=== PATIENT | male | born 1985 | race Caucasian/White ===

== ENCOUNTER 2017-06-04 23:07 | Emergency (ER) | payer BC, OTHER ==
[~2017-06-04] VITALS: Ht 175.3 cm; Wt 74.9 kg
[2017-06-04 23:23] VITALS: TEMP 36.9; Ht 175.3 cm; Wt 74.9 kg
[2017-06-05] MEDS ORDERED: LIDOCAINE/EPINEPHRINE 1% 20 ML VIAL INFIL ONE
--- NOTE | 2017-06-05 00:16 | EMERGENCY ROOM VISIT NOTE ---
ED Visit Note First contact with patient: 23:29 CHIEF COMPLAINT: Lip laceration HISTORY OF PRESENT ILLNESS: This 31-year-old male patient presents to the emergency department, ambulatory, with his , who is a physician, complaining of a left upper lip laceration. The patient was at the [employer], when he got excited and jumped upward. He states when he came down, his foot got stuck behind a bleacher, and he fell forward onto another bleacher. This split his left upper lip. The injury occurred approximately 1-1/2 hours ago. The patient states the pain is worse with pressure, however states it is mild at its worst. He states that the day, he had approximately 10 drinks. The patient denies any numbness or tingling, loss of consciousness, head injury , neck pain, back pain, headache, or other concerning symptoms. REVIEW OF SYSTEMS: A 10 system review of systems was performed with positives and pertinent negatives listed in the history of present illness. All other systems were reviewed and are negative. ALLERGIES: Triple antibiotic ointment MEDICATIONS: None PMH: None SOCIAL HISTORY: The patient is from [place]. He states he drank approximately 10 drinks today. He admits to chewing tobacco daily and admits to daily marijuana use. PHYSICAL EXAM: VITALS: Vitals are noted on the nurse's note and reviewed by myself. Vital signs stable. GENERAL: This is a 31-year-old male, in no acute distress, nondiaphoretic, well- developed well-nourished. SKIN: There is a laceration through the vermilion border and tired upper lip on the left side. There is swelling noted to the lip. There is mild active bleeding. There are no dental fractures. The skin was without rashes, erythema, edema, or bruising. There is no tenting of the skin. Capillary reflex less than 2 seconds. HEAD: Normocephalic atraumatic. EARS: External auditory canals clear, tympanic membranes pearly vanegas without erythema or effusion bilaterally. EYES: Pupils equal round and reactive to light and accommodation. Conjunctivae without injection, sclerae without icterus. Extraocular movements intact. NOSE: Patent, turbinates without inflammation or discharge. No sinus tenderness. MOUTH: Mucous membranes moist. Tonsils are not enlarged. Pharynx without erythema or exudate. Uvula midline. Airway patent. Tongue does not deviate. NECK: Supple without nuchal rigidity. No lymphadenopathy. No thyromegaly. Cervical spine is nontender. No JVD. EMERGENCY DEPARTMENT COURSE: The patient was seen and evaluated as above. His immediately asked for the plastic surgeon to come in to stitch his lip if possible. I did contact Dr. Saez cost control analyst, who states she would come in to perform the procedure. Please see her dictation for further management and care. DIFFERENTIAL DIAGNOSIS: Laceration, contusion, dental fracture, intracranial hemorrhage, closed head injury, concussion, and others DIAGNOSIS: Left upper lip laceration Allergies Uncoded Allergies: TRIPLE ANTIBIOTIC (Allergy, Intermediate, HIVES, 06/04/17) Vital Signs Date Time Temp Pulse Resp B/P (MAP) Pulse Ox O2 Delivery O2 Flow Rate FiO2 06/05/17 02:14 86 18 147/91 96 06/04/17 23:23 36.9 93 18 148/88 99 Room Air Medications Administered Medications (Trade) Dose Ordered Sig/Nolvia Route Start Time Stop Time Status Last Admin Dose Admin Chlorhexidine Gluconate (Peridex Oral Soln) 480 ml ONE STAT MT 06/05/17 01:52 06/05/17 01:55 DC 06/05/17 02:10 1 ML Departure Information Impression Primary Impression: Lip laceration Dispostion Home / Self-Care Condition GOOD Referrals No Doctor, Assigned (PCP) Patient Instructions My [facility] Additional Instructions Intermittently apply ice for swelling. Apply Vaseline to the incision. Rinse mouth with Peridex (15 ml) twice daily for 7 days. Suture removal in 7 days. Watch for any signs of developing infection. Ibuprofen 800 mg and/or Tylenol 1000 mg every 8 hours. You may also alternate these medications for more effective pain relief: Ibuprofen --4 HRS--> Tylenol --4 HRS--> ibuprofen --4 HRS--> Tylenol .... Follow-up directions per Dr. Saez. Recommend follow-up with an oral surgeon to recheck the laceration of the upper gum. Use Scar Away and start performing scar massage 3 weeks after suture removal. After 3 weeks, also use a high SPF factor sunblock over the next year to help minimize darkening of the scar. Problem Qualifiers Primary Impression: Lip laceration Encounter type: initial encounter Qualified Codes: S01.511A - Laceration without foreign body of lip, initial encounter
[2017-06-05] MEDS ORDERED: PRDXLUD MT (01:51)
[2017-06-05] MEDS ORDERED: CHLORHEXIDINE GLUCONATE 0.12% 480 ML MT STA (01:52)
[2017-06-05 02:14] VITALS: BP 147/91; PULSE 86; O2SAT 96
--- NOTE | 2017-06-05 02:39 | CONSULTATION REPORT ---
DATE OF CONSULTATION: 06/05/2017 REASON FOR CONSULTATION: Lip laceration. HISTORY OF PRESENT ILLNESS: The patient is a 31-year-old male who presented to the Emergency Department with his (who is a physician) after he sustained a lip laceration, which resulted when he got excited at the [employer] game and jumped, tripping on a bleacher and landing on another bleacher, which caused the laceration. The injury happened about 3 hours prior to my evaluation. He was complaining of some pain in his teeth and pain in the lips. Otherwise, he has no complaints. He acknowledges drinking approximately 10 drinks today. PAST MEDICAL HISTORY: None. He states he does not go to the doctor. PAST SURGICAL HISTORY: None other than laceration repair on his arm about 10 years ago. MEDICATIONS: None. ALLERGIES: TRIPLE ANTIBIOTIC OINTMENT. SOCIAL HISTORY: He is from [place] and works in [employer], installing [employer]. He did consume alcohol today. Uses chewing tobacco daily and uses marijuana. REVIEW OF SYSTEMS: As per HPI. PHYSICAL EXAMINATION: GENERAL: Shows mildly intoxicated 31-year-old male in no distress. VITAL SIGNS: He is afebrile with stable vitals. HEAD AND NECK EXAMINATION: Shows that there is a complex lip laceration measuring about 2 cm, which extends from the left upper lip through the vermilion border and on to dry mucosa. The orbicularis muscle is completely transected and the laceration is through the mucosal layer as well. The gingivobuccal sulcus has been disrupted centrally and on the right upper maxilla, there are multiple gingival lacerations. Teeth appear stable and without evidence of any fracture. PSYCHIATRIC: He is awake, alert and oriented x3. IMPRESSION: Left upper lip laceration through and through requiring repair, significant tobacco use. PLAN: Sutured repair in the Emergency Department. I described the procedure and verbal consent was obtained. We discussed the risks specific to healing with regard to use of chewing tobacco. We discussed that any nicotine-containing products are likely to jeopardize healing and may result in failure to heal or poor scarring. Also, discussed the possible necrosis of the mucosa, which was on a very thin pedicle. We discussed postoperative wound care and he has been instructed to apply ice to the area and take Tylenol as needed. He should use Vaseline on the laceration in order to keep these sutures moist. This should be applied 3-4 times a day. Sutures to be removed in 1 week. His who is a physician is willing to do this. Discussed use of silicone scar care products such as ScarAway and also use of sunscreen. Reviewed scar massage, which can be performed beginning 3 weeks following today's repair. PROCEDURE NOTE: Verbal consent was obtained for repair. The skin was prepped with Betadine. Prior to prepping, the vermilion border was marked with a surgical marking pen to allow for better approximation. 2 mL of 1% lidocaine with epinephrine was used to anesthetize the orbicularis skin and mucosal surface. This was also used to anesthetize the gingivobuccal sulcus. I began by reapproximating orbicularis muscle with 5-0 Vicryl interrupted suture. Skin was reapproximated using 6-0 nylon interrupted skin sutures, taking care not to suture it directly through the vermilion border. 4-0 chromic sutures were used to reapproximate the dry and wet mucosa. 4-0 chromic interrupted sutures were used to reapproximate the gingivobuccal sulcus and the gingival mucosa. The procedure was tolerated well. He may contact us with any concerns related to followup. Verbal instructions as well as written instructions were provided. ARTHUR
== END 2017-06-05 02:17 | disposition home or self-care (01) ==
LOC: C.EDB 23:09 → C.EDC 06-05 02:17
DX: S01.511A Laceration without foreign body of lip, initial encounter (principal); W22.8XXA Striking against or struck by other objects, initial encounter; Y92.321 Football field as the place of occurrence of the external cause